=== PATIENT | female | born 1955 | race Caucasian/White ===

== ENCOUNTER 2017-11-07 09:12 | Emergency (ER) | payer OTHER ==
[2017-11-07] MEDS: HYDROmorphONE 2 MG/ML SYG IM (10:23)
[2017-11-07] MEDS: ONDANSETRON (ODT) 4 MG TAB ODT (10:23)
== END 2017-11-07 12:17 | disposition home or self-care (01) ==
LOC: E/R 09:12
DX: G62.9 Polyneuropathy, unspecified (principal); I10 Essential (primary) hypertension; E11.9 Type 2 diabetes mellitus without complications
CPT/HCPCS: 93970; 96372; 99285-25

== ENCOUNTER 2018-07-01 19:05 | Emergency (ER) | payer OTHER ==
[2018-07-01 19:52] LABS: ADD MAN DIFF? NO
[2018-07-01] MEDS: ASPIRIN 325 MG TAB PO (19:53)
[2018-07-01 19:54] LABS: WHITE BLOOD COUNT 11.2 10^3/ul (4.8-10.8)
[2018-07-01 19:54] LABS: BASOPHIL # 0.1 10^3/ul (0.0-0.1); BASOPHILS % 0.8 % (0.0-2.0); EOSINOPHILS # 0.2 10^3/ul (0.0-0.5); EOSINOPHILS % 1.6 % (0.0-7.0); HEMATOCRIT 43.3 % (37.0-47.0); HEMOGLOBIN 14.5 g/dl (12.0-16.0); LYMPHOCYTES # 4.4 10^3/ul (0.8-2.9); LYMPHOCYTES % 39.7 % (15.0-51.0); MEAN CORPUSCULAR HEMOGLOBIN 27.8 pg (29.0-33.0); MEAN CORPUSCULAR HGB CONC 33.5 g/dl (32.0-37.0); MEAN PLATELET VOLUME 10.9 fl (7.4-10.4); MONOCYTE # 0.7 10^3/ul (0.3-0.9); MONOCYTES % 5.8 % (0.0-11.0); NEUTROPHIL # 5.8 10^3/ul (1.6-7.5); NEUTROPHILS % 51.7 % (39.0-77.0); PLATELET COUNT 268 10^3/UL (140-415); RED BLOOD COUNT 5.22 10^6/ul (4.20-5.40); RED CELL DISTRIBUTION WIDTH 12.7 % (11.5-14.5)
[2018-07-01 19:58] LABS: INR 0.86; PARTIAL THROMBOPLASTIN TIME 23.6 Sec (23.0-35.0); PROTIME 11.8 Sec (11.9-14.9); PT RATIO 0.9
[2018-07-01 20:03] LABS: ALANINE AMINOTRANSFERASE 12 IU/L (13-69); ALBUMIN 3.1 g/dl (3.3-4.9); ALBUMIN/GLOBULIN RATIO 0.96; ALKALINE PHOSPHATASE 64 IU/L (42-121); ANION GAP 5 (5-13); ASPARTATE AMINO TRANSFERASE 16 IU/L (15-46); BLOOD UREA NITROGEN 24 mg/dl (7-20); CALCIUM 9.8 mg/dl (8.4-10.2); CARBON DIOXIDE 30 mmol/L (21-31); CHLORIDE 98 mmol/L (97-110); CREATINE KINASE 64 IU/L (23-200); Estimated GFR > 60 mL/min (>60); LIPASE 147 U/L (23-300); POTASSIUM 4.4 mmol/L (3.5-5.1); SODIUM 133 mmol/L (135-144); TOTAL PROTEIN 6.3 g/dl (6.1-8.1)
[2018-07-01 20:13] LABS: GLUCOSE 414 mg/dl (70-220)
[2018-07-01 20:15] LABS: B-TYPE NATRIURETIC PEPTIDE 403 PG/ML (0-125); CK INDEX 1.5; CK-MB 0.98 ng/ml (0.0-2.4); TROPONIN-I < 0.012 ng/ml (0.000-0.120)
[2018-07-01] MEDS: INSULIN LISPRO 100 UNIT/ML VIAL SC (20:49)
[2018-07-01] MEDS: FUROSEMIDE 40 MG INJ IV (20:50)
[2018-07-01] MEDS ORDERED: ACETAMINOPHEN 325 MG TAB PO (22:30)
[2018-07-01] MEDS ORDERED: ONDANSETRON 4 MG INJ IV (22:30)
[2018-07-01] MEDS: ONDANSETRON 4 MG INJ IV (22:51)
[2018-07-01] MEDS: morphine 4 MG/ML VIAL IV (22:51)
== END 2018-07-01 23:20 | disposition left against medical advice (07) ==
LOC: E/R 19:05
DX: E11.65 Type 2 diabetes mellitus with hyperglycemia (principal); R42 Dizziness and giddiness; R60.9 Edema, unspecified; I10 Essential (primary) hypertension; Z79.84 Long term (current) use of oral hypoglycemic drugs
CPT/HCPCS: 70450; 71045; 80053; 82550; 82553; 82962; 83690; 83880; 84484; 85025; 85610; 85730; 93005; 93970; 96372; 96374; 99285-25

== ENCOUNTER 2018-10-09 03:11 | Inpatient (IN) | payer OTHER ==
[2018-10-09 05:03] LABS: ADD MAN DIFF? NO
[2018-10-09 05:04] LABS: BASOPHIL # 0.1 10^3/ul (0.0-0.1); BASOPHILS % 0.9 % (0.0-2.0); EOSINOPHILS # 0.2 10^3/ul (0.0-0.5); EOSINOPHILS % 1.8 % (0.0-7.0); HEMATOCRIT 36.8 % (37.0-47.0); HEMOGLOBIN 12.2 g/dl (12.0-16.0); LYMPHOCYTES # 4.4 10^3/ul (0.8-2.9); LYMPHOCYTES % 41.1 % (15.0-51.0); MEAN CORPUSCULAR HEMOGLOBIN 28.2 pg (29.0-33.0); MEAN CORPUSCULAR HGB CONC 33.2 g/dl (32.0-37.0); MEAN PLATELET VOLUME 11.2 fl (7.4-10.4); MONOCYTE # 0.8 10^3/ul (0.3-0.9); MONOCYTES % 7.1 % (0.0-11.0); NEUTROPHIL # 5.2 10^3/ul (1.6-7.5); NEUTROPHILS % 48.5 % (39.0-77.0); PLATELET COUNT 286 10^3/UL (140-415); RED BLOOD COUNT 4.33 10^6/ul (4.20-5.40); RED CELL DISTRIBUTION WIDTH 13.1 % (11.5-14.5)
[2018-10-09 05:04] LABS: WHITE BLOOD COUNT 10.8 10^3/ul (4.8-10.8)
[2018-10-09 05:12] LABS: ANION GAP 6 (5-13); BLOOD UREA NITROGEN 31 mg/dl (7-20); CALCIUM 9.2 mg/dl (8.4-10.2); CARBON DIOXIDE 27 mmol/L (21-31); CHLORIDE 104 mmol/L (97-110); CREATININE 0.99 mg/dl (0.44-1.00); Estimated GFR 56 mL/min (>60); GLUCOSE 319 mg/dl (70-220); POTASSIUM 4.8 mmol/L (3.5-5.1); SODIUM 137 mmol/L (135-144)
[2018-10-09 05:23] LABS: B-TYPE NATRIURETIC PEPTIDE 432 PG/ML (0-125)
[2018-10-09 05:24] LABS: TROPONIN-I 0.525 ng/ml (0.000-0.120)
[2018-10-09] MEDS ORDERED: ONDANSETRON 4 MG INJ IV (07:00)
[2018-10-09] MEDS ORDERED: ACETAMINOPHEN 325 MG TAB PO ×2 (07:00→12:30)
[2018-10-09] MEDS: ONDANSETRON (ODT) 4 MG TAB ODT (09:42)
[2018-10-09] MEDS: HYDROCODONE/APAP (10/325) TAB PO (09:42)
[2018-10-09] MEDS: DICYCLOMINE 10 MG CAP PO (09:42)
[2018-10-09] MEDS ORDERED: BISACODYL (EC) 5 MG TAB PO (12:30)
[2018-10-09] MEDS ORDERED: DOCUSATE SODIUM 100 MG CAP PO (12:30)
[2018-10-09] MEDS ORDERED: ONDANSETRON 4 MG TAB PO (12:30)
[2018-10-09] MEDS ORDERED: MAGNESIUM HYDROXIDE 30ML CUP PO (12:30)
[2018-10-09 13:30] LABS: CREATINE KINASE 182 IU/L (23-200)
[2018-10-09 13:43] LABS: CK INDEX 3.3; CK-MB 5.97 ng/ml (0.0-2.4)
[2018-10-09] MEDS ORDERED: FUROSEMIDE 40 MG TAB PO (14:00)
[2018-10-09] MEDS ORDERED: NITROGLYCERIN (SL) 0.4 MG TAB SL (14:00)
[2018-10-09] MEDS ORDERED: PIOGLITAZONE 45 MG TAB PO (14:30)
[2018-10-09] MEDS ORDERED: GLUCAGON 1 MG INJ IM (14:30)
[2018-10-09] MEDS ORDERED: GLUCOSE GEL 15 GRAM TUBE PO ×2 (14:30)
[2018-10-09] MEDS ORDERED: GLUCOSE GEL 15 GRAM TUBE BUCCAL (14:30)
[2018-10-09] MEDS ORDERED: DEXTROSE 50% 50 ML SYRINGE IV ×2 (14:30)
[2018-10-09] MEDS: BENAZEPRIL 40 MG TAB PO (14:39)
[2018-10-09] MEDS: NIFEdipine (XL) 30 MG TAB PO ×2 (14:39→23:00)
[2018-10-09] MEDS: FUROSEMIDE 20 MG INJ IV (14:40)
[2018-10-09] MEDS: ENOXAPARIN 60 MG/0.6 ML SYG SC ×2 (14:40→23:00)
[2018-10-09] MEDS: ASPIRIN 81 MG TAB PO (14:42)
[2018-10-09] MEDS: ACCU-CHEK XX ×2 (17:25→22:26)
[2018-10-09] MEDS: PIOGLITAZONE 15 MG TAB PO (17:30)
[2018-10-09] MEDS ORDERED: ACCU-CHEK XX (17:30)
[2018-10-09] MEDS ORDERED: GLIMEPIRIDE 4 MG TAB PO (18:00)
[2018-10-09] MEDS: GEMFIBROZIL 600 MG TAB PO ×2 (18:44→20:49)
[2018-10-09 18:48] LABS: CREATINE KINASE 184 IU/L (23-200)
[2018-10-09] MEDS: INSULIN ASPART [NOVOLOG] 3 ML PEN SC ×2 (18:51→22:23)
[2018-10-09 19:00] LABS: CK INDEX 2.9; CK-MB 5.33 ng/ml (0.0-2.4)
[2018-10-09] MEDS: NA PHOSPHATE/BIPHOS 133 ML ENEMA PR (20:19)
[2018-10-09] MEDS: FAMOTIDINE 20 MG INJ IV (20:48)
[2018-10-09] MEDS: ATORVASTATIN 40 MG TAB PO (20:49)
[2018-10-09] MEDS: METOPROLOL 25 MG TAB PO (20:49)
[2018-10-09] MEDS: INSULIN GLARGINE [LANTus] (100 UNITS/ML) SYG SC (22:26)
[2018-10-10] MEDS: ACCU-CHEK XX ×3 (02:00→11:20)
[2018-10-10] MEDS: FUROSEMIDE 20 MG INJ IV (08:27)
[2018-10-10] MEDS: FAMOTIDINE 20 MG INJ IV (08:28)
[2018-10-10] MEDS: ASPIRIN 81 MG TAB PO (08:28)
[2018-10-10] MEDS: ESCITALOPRAM 10 MG TAB PO (08:29)
[2018-10-10] MEDS: NIFEdipine (XL) 30 MG TAB PO (08:30)
[2018-10-10] MEDS: PIOGLITAZONE 15 MG TAB PO (09:00)
[2018-10-10] MEDS ORDERED: ENALAPRIL 20 MG TAB PO (09:00)
[2018-10-10] MEDS: METOPROLOL 25 MG TAB PO (09:00)
[2018-10-10] MEDS: BENAZEPRIL 40 MG TAB PO (09:00)
[2018-10-10] MEDS: GEMFIBROZIL 600 MG TAB PO (09:00)
[2018-10-10] MEDS: INSULIN ASPART [NOVOLOG] 3 ML PEN SC ×2 (09:01→12:56)
[2018-10-10] MEDS: ENOXAPARIN 60 MG/0.6 ML SYG SC (09:01)
[2018-10-10 09:14] LABS: ADD MAN DIFF? NO
[2018-10-10 09:18] LABS: BASOPHIL # 0.1 10^3/ul (0.0-0.1); EOSINOPHILS # 0.1 10^3/ul (0.0-0.5); EOSINOPHILS % 1.6 % (0.0-7.0); HEMATOCRIT 40.1 % (37.0-47.0); HEMOGLOBIN 13.1 g/dl (12.0-16.0); LYMPHOCYTES # 2.6 10^3/ul (0.8-2.9); LYMPHOCYTES % 31.2 % (15.0-51.0); MEAN CORPUSCULAR HEMOGLOBIN 28.1 pg (29.0-33.0); MEAN CORPUSCULAR HGB CONC 32.7 g/dl (32.0-37.0); MEAN CORPUSCULAR VOLUME 86.1 fl (82.0-101.0); MEAN PLATELET VOLUME 10.5 fl (7.4-10.4); MONOCYTE # 0.4 10^3/ul (0.3-0.9); MONOCYTES % 5.1 % (0.0-11.0); NEUTROPHILS % 60.5 % (39.0-77.0); PLATELET COUNT 301 10^3/UL (140-415); RED BLOOD COUNT 4.66 10^6/ul (4.20-5.40); RED CELL DISTRIBUTION WIDTH 13.3 % (11.5-14.5)
[2018-10-10 09:18] LABS: WHITE BLOOD COUNT 8.3 10^3/ul (4.8-10.8)
[2018-10-10 09:54] LABS: ANION GAP 6 (5-13); BLOOD UREA NITROGEN 23 mg/dl (7-20); CARBON DIOXIDE 29 mmol/L (21-31); CHLORIDE 103 mmol/L (97-110); CHOL/HDL RATIO 4.5 RATIO; CHOLESTEROL 225 mg/dl (100-200); Estimated GFR > 60 mL/min (>60); GLUCOSE 225 mg/dl (70-220); HDL CHOLESTEROL 50 mg/dl (35-98); LDL CHOLESTEROL,CALCULATED 124 mg/dl; MAGNESIUM 1.7 mg/dl (1.7-2.5); POTASSIUM 4.6 mmol/L (3.5-5.1); SODIUM 138 mmol/L (135-144); TRIGLYCERIDES 254 mg/dl (0-149)
[2018-10-10 10:01] LABS: HEMOGLOBIN A1C 11.8 % (0-5.9)
[2018-10-10 10:25] LABS: FREE THYROXINE INDEX (Calc) 4.21 ug/ml (0.65-3.89); T3 UPTAKE 38.3 % (23.5-40.5)
[2018-10-10] MEDS: DIAZEPAM 5 MG TAB PO (10:35)
[2018-10-10] MEDS: DIPHENHYDRAMINE 50 MG CAP PO (10:35)
[2018-10-10 11:06] LABS: INR 0.91; PROTIME 12.4 Sec (11.9-14.9)
[2018-10-10 11:07] LABS: PARTIAL THROMBOPLASTIN TIME 31.6 Sec (23.0-35.0)
[2018-10-10 12:06] LABS: INR 0.91; PARTIAL THROMBOPLASTIN TIME 35.4 Sec (23.0-35.0); PROTIME 12.4 Sec (11.9-14.9)
[2018-10-10 13:24] LABS: CREATINE KINASE 129 IU/L (23-200)
[2018-10-10 13:35] LABS: CK INDEX 1.2; CK-MB 1.61 ng/ml (0.0-2.4)
[2018-10-10 13:45] LABS: ADD UMIC YES; UR ASCORBIC ACID NEGATIVE (NEGATIVE); UR BACTERIA FEW /HPF (NONE SEEN); UR BILIRUBIN (Dip) NEGATIVE (NEGATIVE); UR BLOOD (Dip) NEGATIVE (NEGATIVE); UR CLARITY CLOUDY (CLEAR); UR COLOR YELLOW (YELLOW); UR GLUCOSE (Dip) 2+ mg/dL (NEGATIVE); UR KETONES (Dip) NEGATIVE (NEGATIVE); UR LEUKOCYTE ESTERASE (Dip) NEGATIVE Leu/ul (NEGATIVE); UR NITRITE (Dip) NEGATIVE (NEGATIVE); UR RBC 7 /HPF (0-5); UR SPECIFIC GRAVITY (Dip) 1.015 (1.003-1.030); UR TOTAL PROTEIN (Dip) 3+ mg/dl (NEGATIVE); UR UROBILINOGEN (Dip) NEGATIVE (NEGATIVE); UR WBC 9 /HPF (0-5)
[2018-10-10] MEDS ORDERED: LORAZEPAM 2 MG INJ IV (14:00)
[2018-10-10] MEDS ORDERED: hydrALAzine 20 MG INJ IV (14:00)
[2018-10-10] MEDS ORDERED: HEPARIN 1000 UNITS/ML 10 ML INJ IV ×2 (16:00)
[2018-10-10] MEDS ORDERED: HEPARIN 25000 UNITS/250 ML 250 ML IV (16:00)
== END 2018-10-10 16:30 | disposition left against medical advice (07) | DRG 280 ==
LOC: E/R 03:11 → TEL 15:50
DX: I21.4 Non-ST elevation (NSTEMI) myocardial infarction (principal); I50.43 Acute on chronic combined systolic (congestive) and diastolic (congestive) heart failure; E78.5 Hyperlipidemia, unspecified; E11.65 Type 2 diabetes mellitus with hyperglycemia; F32.9 Major depressive disorder, single episode, unspecified; I11.0 Hypertensive heart disease with heart failure; Z79.4 Long term (current) use of insulin
CPT/HCPCS: 36415; 71045; 80048; 80061; 81001; 82550; 82553; 82962; 83036; 83735; 83880; 84100; 84436; 84479; 84484; 85025; 85610; 85730; 93005; 93306; 99285-25